=== PATIENT | female | born 1960 | race Caucasian/White ===

== ENCOUNTER → 2016-11-01 | Outpatient (CLI) | payer MEDICARE, MEDICAID ==
[2016-11-01 15:35] LABS: BUN 12 mg/dL (7-18); GFR (ESTIMATED) 58 ML/MIN (59-)
[2016-11-01 16:01] LABS: LYMPH # 1.4 K/mm3 (0.7-4.5)
== END ==
LOC: MAY-LAB 15:04
PROVIDERS: Internal Medicine
DX: I25.10 Atherosclerotic heart disease of native coronary artery without angina pectoris (principal); E78.5 Hyperlipidemia, unspecified